=== PATIENT | female | born 2005 | race African-American/Black ===

== ENCOUNTER 2025-03-29 17:09 | Emergency (ER) | payer OTHER ==
[~2025-03-29] VITALS: Ht 167.6 cm; Wt 75.0 kg
[2025-03-29 18:28] LABS: PLATELET COUNT (AUTO) 201 K/uL (150-450); RED BLOOD CELL COUNT(AUTO) 4.59 MIL/uL (4.00-5.20); RED CELL DISTRIBUTION WIDTH 14.9 % (11.5-14.5); WHITE BLOOD COUNT (AUTO) 6.7 K/uL (4.5-11.0)
[2025-03-29] MEDS: SODIUM CHLORIDE 0.9% 2,000 ML IV ONE (20:16)
[2025-03-29] MEDS: DOXYLAMINE SUCCINATE 25 MG TABLET PO ONE (20:17)
[2025-03-29] MEDS: PYRIDOXINE HCL 50 MG TABLET PO ONE (20:17)
[2025-03-29] MEDS: ONDANSETRON HCL 4 MG/2 ML VIAL IVP ONE (20:17)
[2025-03-29 20:35] LABS: APPEARANCE,URINE CLEAR (CLEAR); GLUCOSE, URINE (UA) NEGATIVE (NEGATIVE); LEUKOCYTE ESTERASE ,URINE TRACE (NEGATIVE); NITRATE,URINE NEGATIVE (NEGATIVE); OCCULT BLOOD,URINE NEGATIVE (NEGATIVE); SPECIFIC GRAVITIY, URINE 1.029 (1.003-1.030)
[2025-03-29 21:10] LABS: SQUAMOUS EPITHELIAL CELL,UR Moderate /LPF (None Seen)
[2025-03-29] MEDS ORDERED: PREN-18 PO (22:07)
[2025-03-29] MEDS ORDERED: AMOX500C2 PO (22:07)
[2025-03-29] MEDS ORDERED: DOXY1TAB3 PO (22:07)
[2025-03-29 22:55] VITALS: TEMP 98.205296
[2025-03-29 23:30] VITALS: BP 112/67; PULSE 71; RESP 18; O2SAT 100
== END 2025-03-30 00:05 | disposition home or self-care (01) ==
LOC: EMS 17:10
DX: O21.0 Mild hyperemesis gravidarum (principal); O23.41 Unspecified infection of urinary tract in pregnancy, first trimester; N39.0 Urinary tract infection, site not specified; Z3A.01 Less than 8 weeks gestation of pregnancy
CPT/HCPCS: 99285; 96374; 76801; 81001; 84702; 85025; 36415; J2405; J7030